=== PATIENT | male | born 1990 | race African-American/Black ===

== ENCOUNTER 2020-10-13 12:29 | Inpatient (IN) | payer OTHER ==
[2020-10-13 14:52] VITALS: BMI 21.9
[2020-10-13] MEDS ORDERED: MENTHOL/PHENOL 1 EACH UD MM PRN (16:08)
[2020-10-13] MEDS ORDERED: IBUPROFEN 400 MG TABLET (FP) PO PRN (16:08)
[2020-10-13] MEDS ORDERED: MAG HYDROX/AL HYDROX/SIMETH 30 ML UNIT-DOSE CUP PO PRN (16:08)
[2020-10-13] MEDS ORDERED: NICOTINE POLACRILEX 2 MG GUM BUC PRN (16:08)
[2020-10-13] MEDS ORDERED: BUPRENORPHINE/NALOXONE 4 MG/1 MG FILM PACKET SL ONE (16:08)
[2020-10-13] MEDS ORDERED: MAGNESIUM HYDROX 2400MG/30ML ORAL SUSPENSION 30 ML CUP PO PRN (16:08)
[2020-10-13] MEDS ORDERED: MAGNESIUM CITRATE 300 ML BOTTLE PO PRN (16:08)
[2020-10-13] MEDS ORDERED: ACETAMINOPHEN 325 MG TABLET (FP) PO PRN ×2 (16:08)
[2020-10-13] MEDS ORDERED: BISMUTH SUBSALICYLATE 524 MG/30 ML PO PRN (16:08)
[2020-10-13] MEDS: NICOTINE 14 MG/24 HOURS TOPICAL PATCH TD SCH (19:26)
[2020-10-13] MEDS: ONDANSETRON *ODT* 4 MG TABLET SL PRN (20:15)
[2020-10-13] MEDS: PRENATAL VITAMINS W/ FOLIC ACID TABLET (FP) PO SCH (20:17)
[2020-10-13] MEDS: hydrOXYzine PAMOATE 25 MG CAPSULE (FP) PO SCH ×2 (20:17→23:05)
[2020-10-13] MEDS ORDERED: TRIMETHOBENZAMIDE HCL 200MG/2ML INJ IM ONE (21:48)
[2020-10-13] MEDS ORDERED: BUPRENORPHINE/NALOXONE 4 MG/1 MG FILM PACKET SL PRN (22:08)
[2020-10-13] MEDS: THIAMINE HCL 100 MG TABLET (FP) PO SCH (23:05)
[2020-10-13] MEDS: MELATONIN 5 MG TABLETS PO SCH (23:05)
[2020-10-14] MEDS ORDERED: TRIMETHOBENZAMIDE HCL 200MG/2ML INJ IM ONE ×2 (04:57→19:02)
[2020-10-14] MEDS ORDERED: LORazepam 2 MG/ML SDV VIAL IM ONE (06:35)
[2020-10-14] MEDS: hydrOXYzine PAMOATE 25 MG CAPSULE (FP) PO SCH (07:19)
[2020-10-14] MEDS ORDERED: BUPRENORPHINE/NALOXONE 12 MG-3 MG SL FILM PACKET SL ONE (09:00)
[2020-10-14] MEDS: METHOCARBAMOL 500 MG TABLET PO PRN (09:21)
[2020-10-14] MEDS: diazePAM 5 MG TABLET PO PRN ×2 (09:21→20:38)
[2020-10-14] MEDS: DICYCLOMINE HCL 10 MG CAPSULE PO PRN ×2 (09:21→20:39)
[2020-10-14] MEDS: hydrOXYzine PAMOATE 25 MG CAPSULE (FP) PO PRN (09:21)
[2020-10-14] MEDS: ONDANSETRON *ODT* 4 MG TABLET SL PRN ×2 (09:21→18:59)
[2020-10-14] MEDS: NICOTINE 14 MG/24 HOURS TOPICAL PATCH TD SCH (09:21)
[2020-10-14] MEDS: cloNIDine HCL 0.1 MG TABLET PO PRN ×2 (09:21→20:39)
[2020-10-14] MEDS: PRENATAL VITAMINS W/ FOLIC ACID TABLET (FP) PO SCH (09:21)
[2020-10-14] MEDS ORDERED: BUPRENORPHINE/NALOXONE 4 MG/1 MG FILM PACKET SL PRN (15:00)
[2020-10-14] MEDS: THIAMINE HCL 100 MG TABLET (FP) PO SCH (22:33)
[2020-10-14] MEDS: MELATONIN 5 MG TABLETS PO SCH (22:33)
[2020-10-15] MEDS ORDERED: BUPRENORPHINE/NALOXONE 12 MG-3 MG SL FILM PACKET SL ONE (09:00)
[2020-10-15] MEDS: METHOCARBAMOL 500 MG TABLET PO PRN ×2 (09:36→22:35)
[2020-10-15] MEDS: ONDANSETRON *ODT* 4 MG TABLET SL PRN ×2 (09:36→23:46)
[2020-10-15] MEDS: PRENATAL VITAMINS W/ FOLIC ACID TABLET (FP) PO SCH (09:36)
[2020-10-15] MEDS: hydrOXYzine PAMOATE 25 MG CAPSULE (FP) PO PRN ×2 (09:37→22:38)
[2020-10-15] MEDS: diazePAM 5 MG TABLET PO PRN ×2 (09:37→23:46)
[2020-10-15] MEDS: NICOTINE 14 MG/24 HOURS TOPICAL PATCH TD SCH (09:39)
[2020-10-15 10:15] LABS: HEMATOCRIT 45.9 % (35.4-49); HEMOGLOBIN 15.4 GM/dL (11.7-16.9); MCH 28.7 pg (25.7-33.7); MCHC 33.5 g/dl (32.0-35.9); MEAN CELL VOLUME 85.8 fl (80-96); MEAN PLT VOLUME 8.7 fl (7.5-11.1); PLATELET COUNT 317 K/MM3 (134-434); RBC 5.34 M/mm3 (4.00-5.60); RDW 14.6 % (11.9-15.9); WHITE BLOOD COUNT 12.8 K/mm3 (4.0-10.0)
[2020-10-15 10:19] LABS: ALBUMIN 4.4 g/dl (3.4-5.0); BLOOD UREA NITROGEN 20.6 mg/dL (7-18); CALCIUM 9.7 mg/dL (8.5-10.1)
[2020-10-15 10:24] LABS: TOT PROT 8.3 g/dl (6.4-8.2)
[2020-10-15 10:27] LABS: BILIRUBIN,TOTAL 0.8 mg/dL (0.2-1); CREATININE 0.7 mg/dL (0.55-1.3)
[2020-10-15] MEDS: MELATONIN 5 MG TABLETS PO SCH (22:34)
[2020-10-15] MEDS: THIAMINE HCL 100 MG TABLET (FP) PO SCH (22:34)
[2020-10-16 06:07] LABS: SARS-CoV-2 NAA Not Detected (Not Detected)
[2020-10-16] MEDS ORDERED: BUPRENORPHINE/NALOXONE 12 MG-3 MG SL FILM (DETOX) SL ONE (09:00)
[2020-10-16] MEDS: ONDANSETRON *ODT* 4 MG TABLET SL PRN (09:26)
[2020-10-16] MEDS: CYPROHEPTADINE HCL 4 MG TABLET PO SCH ×2 (10:33→17:11)
[2020-10-16] MEDS: PRENATAL VITAMINS W/ FOLIC ACID TABLET (FP) PO SCH (10:33)
[2020-10-16] MEDS: NICOTINE 14 MG/24 HOURS TOPICAL PATCH TD SCH (10:33)
[2020-10-16] MEDS ORDERED: BUPRENORPHINE/NALOXONE 2 MG/0.5 MG FILM (DETOX) SL ONE (21:00)
[2020-10-16] MEDS: THIAMINE HCL 100 MG TABLET (FP) PO SCH (22:50)
[2020-10-16] MEDS: MELATONIN 5 MG TABLETS PO SCH (22:50)
[2020-10-17] MEDS ORDERED: BUPRENORPHINE/NALOXONE 4 MG/1 MG FILM (DETOX) SL ONE (06:00)
[2020-10-17] MEDS: CYPROHEPTADINE HCL 4 MG TABLET PO SCH (06:43)
[2020-10-17 09:23] VITALS: BP 127/84; PULSE 56; TEMP 96.9
== END 2020-10-17 08:58 | disposition home or self-care (01) | DRG 773 ==
LOC: YASAS 12:29 → Y3N 17:37
PROVIDERS: ADMIT Allergy & Immunology; ATTEND Allergy & Immunology
PROC: HZ2ZZZZ Detoxification Services for Substance Abuse Treatment (ICD-10-PCS; principal; 2020-10-13)
DX: F11.23 Opioid dependence with withdrawal (principal); F10.230 Alcohol dependence with withdrawal, uncomplicated; F12.20 Cannabis dependence, uncomplicated; F17.210 Nicotine dependence, cigarettes, uncomplicated; D72.829 Elevated white blood cell count, unspecified; B18.2 Chronic viral hepatitis C; R63.0 Anorexia; R11.2 Nausea with vomiting, unspecified
CPT/HCPCS: 36415; 80053; 85027; 86780; 93005; 93010; C9803; J0735; Q0162; U0003; U0005

== ENCOUNTER 2024-05-03 17:31 | Inpatient (IN) | payer OTHER ==
[2024-05-03 18:27] VITALS: BMI 21.6
[2024-05-03] MEDS ORDERED: LOPERAMIDE HCL 2 MG CAPSULE PO PRN (19:02)
[2024-05-03] MEDS ORDERED: MAGNESIUM HYDROX 2400MG/30ML ORAL SUSPENSION 30 ML CUP PO PRN (19:02)
[2024-05-03] MEDS ORDERED: IBUPROFEN 400 MG TABLET (FP) PO PRN (19:02)
[2024-05-03] MEDS ORDERED: BENZOCAINE/MENTHOL (CHLORASEPTIC ) LOZENGE MM PRN (19:02)
[2024-05-03] MEDS ORDERED: guaiFENesin 600 MG TABLET.ER (FP) PO PRN (19:02)
[2024-05-03] MEDS ORDERED: NALOXONE (NARCAN) HCL 4 MG/0.1 ML SPRAY NS PRN (19:02)
[2024-05-03] MEDS ORDERED: NICOTINE POLACRILEX 2 MG LOZENGE BC PRN (19:02)
[2024-05-03] MEDS ORDERED: POLYETHYLENE GLYCOL (HEALTHYLAX) 3350 17 GM PACKET PO PRN (19:02)
[2024-05-03] MEDS ORDERED: NICOTINE POLACRILEX 2 MG GUM BUC PRN (19:02)
[2024-05-03] MEDS ORDERED: ACETAMINOPHEN 325 MG TABLET (FP) PO PRN (19:02)
[2024-05-03] MEDS ORDERED: BENZONATATE 200 MG CAPSULE PO PRN (19:02)
[2024-05-03] MEDS ORDERED: methaDONE HCL 10 MG TABLET (FOR DETOX USE ONLY) PO PRN (19:04)
[2024-05-03] MEDS: cloNIDine HCL 0.1 MG TABLET PO PRN (20:00)
[2024-05-03] MEDS: IBUPROFEN 600 MG TABLET (FP) PO PRN (20:00)
[2024-05-03] MEDS: methaDONE HCL 10 MG TABLET (FOR DETOX USE ONLY) PO ONE (21:30)
[2024-05-03] MEDS: THIAMINE 100 MG TABLET PO SCH (21:31)
[2024-05-03] MEDS: MELATONIN 5 MG TABLETS PO SCH (21:31)
[2024-05-03] MEDS: MAG HYDROX/AL HYDROX/SIMETH 30 ML UNIT-DOSE CUP PO PRN (22:22)
[2024-05-03] MEDS: DICYCLOMINE HCL 10 MG CAPSULE PO PRN (23:01)
[2024-05-03] MEDS: TRIMETHOBENZAMIDE HCL 200MG/2ML INJ IM ONE (23:25)
[2024-05-04] MEDS: diazePAM 5 MG TABLET PO PRN (07:51)
[2024-05-04] MEDS: ONDANSETRON *ODT* 4 MG TABLET SL PRN (07:54)
[2024-05-04] MEDS: PRENATAL VITAMINS W/ FOLIC ACID TABLET (FP) PO SCH (10:24)
[2024-05-04 11:25] LABS: HEMATOCRIT 44.9 % (35.4-49); HEMOGLOBIN 14.4 GM/dL (11.7-16.9); MCH 27.9 pg (25.7-33.7); MEAN CELL VOLUME 87.1 fl (80-96); MEAN PLT VOLUME 8.6 fl (7.5-11.1); PLATELET COUNT 325 10^3/uL (134-434); RBC 5.15 M/mm3 (4.00-5.60); WHITE BLOOD COUNT 7.3 K/mm3 (4.0-10.0)
[2024-05-04 11:30] LABS: POTASSIUM 4.6 mmol/L (3.5-5.1)
[2024-05-04 11:40] LABS: CALCIUM 9.9 mg/dL (8.5-10.1)
[2024-05-04 11:41] LABS: BLOOD UREA NITROGEN 8.7 mg/dL (7-18)
[2024-05-04 11:44] LABS: CREATININE 0.7 mg/dL (0.55-1.3)
[2024-05-04 11:45] LABS: BILIRUBIN,TOTAL 0.7 mg/dL (0.2-1); TOT PROT 7.8 g/dl (6.4-8.2)
[2024-05-04] MEDS: traZODone HCL 50 MG TABLET (FP) PO SCH (22:21)
[2024-05-05] MEDS: methaDONE HCL 10 MG TABLET (FOR DETOX USE ONLY) PO ONE (10:09)
[2024-05-06] MEDS: BISMUTH SUBSALICYLATE 524 MG/30 ML PO PRN (16:25)
[2024-05-06] MEDS: diazePAM 5 MG TABLET PO ONE (18:47)
[2024-05-06] MEDS: TRIMETHOBENZAMIDE HCL 200MG/2ML INJ IM PRN (18:49)
[2024-05-07 09:32] VITALS: BP 139/98; PULSE 68; RESP 18; TEMP 97.7
[2024-05-07] MEDS: NALOXONE (NYS OPIOID OVERDOSE PROGRAM) 4 MG/0.1 ML SPRAY NS SCH (10:30)
[2024-05-07] MEDS: methaDONE HCL 10 MG TABLET (FOR DETOX USE ONLY) PO ONE (10:34)
== END 2024-05-07 13:12 | disposition home or self-care (01) | DRG 773 ==
LOC: YASAS 17:31 → Y3N 19:23
PROVIDERS: ADMIT Allergy & Immunology; ATTEND Surgery
PROC: HZ2ZZZZ Detoxification Services for Substance Abuse Treatment (ICD-10-PCS; principal; 2024-05-03)
DX: F11.23 Opioid dependence with withdrawal (principal); F17.210 Nicotine dependence, cigarettes, uncomplicated; G47.00 Insomnia, unspecified; B18.2 Chronic viral hepatitis C; Z59.02 Unsheltered homelessness
CPT/HCPCS: 36415; 80053; 80305; 85027; 86780; 93005; 93010; Q0162